=== PATIENT | female | born 2000 | race Caucasian/White ===

== ENCOUNTER 2023-05-03 13:58 | Outpatient (CLI) | payer BC ==
[2023-05-03 15:55] LABS: Hematocrit 39.6 % (34.9-44.5)
[2023-05-03 16:06] LABS: BHCG - Serum Negative (NEGATIVE); Pregs Control Background? CLEAR/WHITE (CLR/WHITE); Pregs Control Bar Appear? YES (CONTROL BAR)
== END 2023-05-03 13:59 | disposition home or self-care (01) ==
LOC: CSHLAB 13:58
PROVIDERS: ATTEND Otolaryngology
DX: Z01.812 Encounter for preprocedural laboratory examination (principal); J01.90 Acute sinusitis, unspecified; J34.2 Deviated nasal septum; J32.0 Chronic maxillary sinusitis
CPT/HCPCS: 84703; 85014

== ENCOUNTER 2023-05-09 06:02 | Day surgery (SDC) | payer BC ==
[2023-05-03 14:46] VITALS: BMI 27.8
[2023-05-09] MEDS ORDERED: Oxymetazoline HCl 0.05% ( 15 ML ) ONE (06:35)
[2023-05-09] MEDS ORDERED: Dexmedetomidine 200 MCG/2 ML VIAL ONE (06:55)
[2023-05-09] MEDS ORDERED: Sevoflurane 250 ML INH ANEST BOTTLE ONE (06:56)
[2023-05-09] MEDS ORDERED: Lidocaine 4% Topical Sol 50 ML BOT ONE (06:56)
[2023-05-09] MEDS ORDERED: SUGAMMADEX SODIUM 200 MG/2 ML VIAL ONE (08:01)
[2023-05-09] MEDS ORDERED: Dexamethasone 20 MG/5 ML VIAL ONE (08:41)
[2023-05-09] MEDS ORDERED: Ondansetron PF 4 MG/2 ML Vial ONE (08:41)
[2023-05-09] MEDS ORDERED: PROPOFOL 20 ML ONE (08:42)
[2023-05-09] MEDS ORDERED: Midazolam HCl 2 mg/2 ml Vial ONE (08:42)
[2023-05-09] MEDS ORDERED: fentaNYL 50 mcg/mL 1 mL Vial ONE ×4 (08:42→11:26)
[2023-05-09] MEDS ORDERED: Lidocaine 1% PF 5 ML VIAL ONE (08:42)
[2023-05-09] MEDS ORDERED: EPINEPHrine 1 MG/10 ML Abboject SYRINGE ONE (09:07)
[2023-05-09] MEDS ORDERED: Lidocaine 1% w/Epinephrine 1:100K 20 ML VIAL ONE (09:07)
[2023-05-09] MEDS ORDERED: EPINEPHrine 1 MG/ML VIAL ONE (09:11)
[2023-05-09] MEDS ORDERED: Rocuronium Bromide 10 MG/ML (10ML VIAL) ONE (10:29)
[2023-05-09] MEDS ORDERED: HYDROcodone/Acetaminophen 5/325 mg Tablet ONE (11:56)
[2023-05-16 14:38] LABS: Fungus Stain Final report (.)
== END 2023-05-09 12:40 | disposition home or self-care (01) ==
LOC: CSHSDC 06:02
PROVIDERS: ATTEND Otolaryngology
PROC: 099R4ZZ Drainage of Left Maxillary Sinus, Percutaneous Endoscopic Approach (ICD-10-PCS; principal; 2023-05-09)
DX: J01.90 Acute sinusitis, unspecified (principal); J34.2 Deviated nasal septum; J32.0 Chronic maxillary sinusitis; H61.22 Impacted cerumen, left ear; B95.8 Unspecified staphylococcus as the cause of diseases classified elsewhere; H62.40 Otitis externa in other diseases classified elsewhere, unspecified ear; B36.9 Superficial mycosis, unspecified; H60.502 Unspecified acute noninfective otitis externa, left ear; I10 Essential (primary) hypertension; G43.909 Migraine, unspecified, not intractable, without status migrainosus; F32.A Depression, unspecified; F41.9 Anxiety disorder, unspecified; F10.90 Alcohol use, unspecified, uncomplicated; Z79.899 Other long term (current) drug therapy; Z90.89 Acquired absence of other organs; Z98.890 Other specified postprocedural states; Z88.5 Allergy status to narcotic agent
CPT/HCPCS: 87070; 87102; 87205; 87206; 88305; 88311; 88312; C2625; J0171; J1100; J2250; J2405; J2704; J3010